=== PATIENT | female | born 1955 | race Caucasian/White ===

== ENCOUNTER 2017-11-26 17:26 | Emergency (ER) | payer BC ==
[2017-11-26 18:16] LABS: % EOSINOPHILS 0.8 % (0.0-5.0); LYMPHOCYTE ABSOLUTE 0.8 Th/cmm (1.5-3.0)
[2017-11-26 18:24] LABS: % BASOPHILS 0.2 % (0.0-2.0); % LYMPHOCYTES 22.3 % (20.0-50.0); % MONOCYTES 7.5 % (2.0-10.0); % NEUTROPHILS 69.2 % (40.0-80.0); HEMATOCRIT 36.5 % (41.0-60); HEMOGLOBIN 12.6 gm/dL (12-16); MEAN CELL VOLUME 91.1 fl (81-100); MEAN CORPUSCULAR HEMOGLOBIN 31.4 pg (27.0-31.0); MEAN CORPUSCULAR HGB CONC 34.4 pg (28.0-36.0); MEAN PLATELET VOLUME 6.2 fl; MONOCYTE ABSOLUTE 0.3 Th/cmm (0.3-1.0); NEUTROPHILE ABSOLUTE 2.3 Th/cmm (1.8-8.0); PLATELET COUNT 200 Th/cmm (150-400); RED BLOOD COUNT 4.01 Mil/cmm (3.80-5.10); RED CELL DISTRIBUTION WIDTH 12.5 % (11.5-20.0)
[2017-11-26 18:51] LABS: ALB/GLOB RATIO 2.3 (1.0-1.8); ALBUMIN 4.1 gm/dL (3.7-5.3); ALKALINE PHOSPHATASE 125 U/L (34-104); BILIRUBIN,TOTAL 0.3 mg/dL (0.3-1.0); BUN - UREA NITROGEN 10 mg/dL (7-25); CALCIUM SERUM 8.6 mg/dL (8.6-10.3); CARBON DIOXIDE 31.4 mEq/L (21.0-31.0); CHLORIDE 97 mEq/L (98-107); CREATININE - SERUM 0.7 mg/dL (0.6-1.2); GFR AFRICAN-AMERICAN > 60.0 ml/min (>90); GFR NON AFRICAN-AMERICAN > 60.0 ml/min; GLUCOSE 138 mg/dL (70-105); POTASSIUM SERUM 3.4 mEq/L (3.5-5.1); SGOT 48 U/L (13-39); SGPT/ALT 64 U/L (7-52); SODIUM SERUM 135 mEq/L (136-145); TOTAL PROTEIN,SERUM 5.9 gm/dL (6.0-8.3)
[2017-11-26 18:56] LABS: WHITE BLOOD COUNT 3.4 Th/cmm (4.8-10.8)
[2017-11-26] MEDS ORDERED: Sodium Chloride 0.9% 1,000 ML IV ONE (20:25)
[2017-11-26] MEDS ORDERED: Levofloxacin 500mg/100mL 500 MG/100 ML BAG IV ONE ×2 (20:26→20:41)
--- NOTE | 2017-11-26 20:30 | ED Physician Chart ---
ED Chief Complaint/HPI - Patient Information Date Seen:: 11/26/17 Time Seen:: 20:00 Chief Complaint:: Cough and malaise History of Present Illness:: 62 yo female cough for 6 days, z-pack for 5 days, still cough and lethargy, vomit today with body tremor Allergies:: Allergies Allergy/AdvReac Type Severity Reaction Status Date / Time No Known Allergies Allergy Verified 11/26/17 17:33 Vitals:: Vital Signs - 8 hr 11/26/17 17:33 Temp 97.9 F HR 69 RR 16 BP 191/90 O2 Sat % 98 Family Medical History - Family Member Mother Hx Family Cancer: No Hx Family Coronary Artery Disease: No Hx Family Congestive Heart Failure: No Hx Family Stroke: No Hx Family Diabetes: No Hx Family Dementia: No Hx Family AIDS: No Hx Family COPD: No Hx Family Psychiatric Problems: No ED Physical Exam - Physical Examination Other Respiratory comments:: rhonchi b/l lungs ED Labs/Radiology/EKG Results - Lab Results Results: Laboratory Tests 11/26/17 11/26/17 11/26/17 18:09 18:09 18:09 WBC 3.4 L RBC 4.01 Hgb 12.6 Hct 36.5 L MCV 91.1 MCH 31.4 H MCHC Differential 34.4 RDW 12.5 Plt Count 200 MPV 6.2 Neutrophils % 69.2 Lymphocytes % 22.3 Monocytes % 7.5 Eosinophils % 0.8 Basophils % 0.2 Sodium 135 L Potassium 3.4 L Chloride 97 L Carbon Dioxide 31.4 H Anion Gap 10.0 BUN 10 Creatinine 0.7 Est GFR ( Amer) > 60.0 Est GFR (Non-Af Amer) > 60.0 BUN/Creatinine Ratio 14.3 Glucose 138 H Whole Bld Lactic Acid 1.41 Calcium 8.6 Total Bilirubin 0.3 AST 48 H ALT 64 H Alkaline Phosphatase 125 H Total Protein 5.9 L Albumin 4.1 Globulin 1.8 Albumin/Globulin Ratio 2.3 H ED Septic Shock - <6hrs of presentation: Vital Signs: Vital Signs - 8 hr 11/26/17 17:33 Temp 97.9 F HR 69 RR 16 BP 191/90 O2 Sat % 98
[2017-11-26] MEDS ORDERED: Potassium Chloride 20 mEq ER Tab PO ONE ×2 (23:02→23:07)
[2017-11-26 23:07] LABS: URINE MICROSCOPIC INDICATED? YES; URINE SOURCE RANDOM
[2017-11-26] MEDS ORDERED: Guaifenesin DM 10 ML UDC PO PRN (23:07)
[2017-11-26 23:17] LABS: URINE BILIRUBIN NEGATIVE (NEGATIVE); URINE BLOOD NEGATIVE (NEGATIVE); URINE GLUCOSE (UA) NEGATIVE (NEGATIVE); URINE KETONE NEGATIVE (NEGATIVE); URINE LEUKOCYTE ESTERASE NEGATIVE (NEGATIVE); URINE NITRATE NEGATIVE (NEGATIVE); URINE PROTEIN NEGATIVE (NEGATIVE); URINE UROBILINOGEN 0.2 E.U./dL (0.2 - 1.0)
[2017-11-26 23:20] LABS: URINE CLARITY CLEAR (CLEAR); URINE COLOR YELLOW
--- NOTE | 2017-11-27 08:59 | Diagnostic Imaging Report ---
Portable chest x-ray History: Cough Allowing for portable technique the heart size is normal. No focal pulmonary parenchymal processes. No hilar or mediastinal abnormalities. Impression: No acute abnormalities.
[2017-11-28 00:52] LABS: URINE BACTERIA FEW /hpf (NONE SEEN); URINE EPITHELIAL CELLS FEW /lpf (FEW); URINE RBC 0-2 /hpf (0-5); URINE WBC 0-2 /hpf (0-5)
== END 2017-11-26 23:29 | disposition home or self-care (01) ==
LOC: ER 17:26
DX: R05 Cough (principal); R53.81 Other malaise; R11.10 Vomiting, unspecified; R25.1 Tremor, unspecified
CPT/HCPCS: 99285; 96365; 96375; 93005; 71010; 84484; 83880; 36415; 83605; 85025; 81001; 80053; 87040; J0360; J1956; J7030